=== PATIENT | male | born 1990 | race Caucasian/White ===

== ENCOUNTER 2016-07-31 20:11 | Emergency (ER) | payer SELFPAY ==
--- NOTE | 2016-07-31 22:35 | ER Document Report ---
ED Medical Screen (RME) - General Chief Complaint: Eye Injury Stated Complaint: LEFT EYE PAIN Time Seen by Provider: 07/31/16 22:33 Notes: 26-year-old male, weed eating prior to arrival, something flew into his eye. States he has foreign body sensation with tears. Denies visual loss. Denies bleeding. Denies use of contacts or glasses. TRAVEL OUTSIDE OF THE [place] IN LAST 30 DAYS: No - Related Data Allergies/Adverse Reactions: No Known Allergies Allergy (Unverified 07/31/16 22:02) Past Medical History Renal/ Medical History: Denies: Hx Peritoneal Dialysis Physical Exam - HEENT Eyes: Tears - left Conjunctiva: Injected. No: Purulent discharge Extraocular movements intact: Yes Eyelashes: Normal Pupils: PERRL
--- NOTE | 2016-08-01 00:04 | ER Document Report ---
ED General - General Chief Complaint: Eye Injury Stated Complaint: LEFT EYE PAIN Time Seen by Provider: 07/31/16 22:33 TRAVEL OUTSIDE OF THE [place] IN LAST 30 DAYS: No - HPI Notes: Patient is a 26-year-old male presents to the ED complaining of foreign body sensation to the left eye that began this morning. Patient states that he was weed eating when he felt something go into his eye. He tried rinsing it out in the hose and in the sink with no relief. Patient states that his eyes been red , painful, and tearing constantly. Denies any changes in his vision aside from having trouble wanting to keep his eye lids open. Denies any fever, URI, sore throat, sob, cp, abd pain, or recent illness. No contacts or glasses. No significant PMH. No PO meds daily. No allergies to meds. - Related Data Allergies/Adverse Reactions: No Known Allergies Allergy (Unverified 07/31/16 22:02) Past Medical History - Social History Smoking Status: Current Every Day Smoker Family History: Reviewed & Not Pertinent Patient has suicidal ideation: No Patient has homicidal ideation: No Renal/ Medical History: Denies: Hx Peritoneal Dialysis Review of Systems - Review of Systems Constitutional: denies: No symptoms reported, See HPI, Chills, Diaphoresis, Fever, Malaise, Weakness, Other, Weight gain, Weight loss, Recent illness EENT: See HPI. denies: No symptoms reported, Double vision, Ear discharge, Nose pain, Nose congestion, Nose discharge, Sinus pressure, Sinus discharge, Throat pain, Difficulty swallowing, Throat swelling, Mouth pain, Mouth swelling , Dental problem, Vertigo, Other Cardiovascular: denies: Chest pain, Palpitations, Dizziness Respiratory: denies: Cough, Short of breath Gastrointestinal: denies: Abdominal pain Neurological/Psychological: denies: Headaches Physical Exam - Vital signs Notes: PHYSICAL EXAMINATION: GENERAL: Well-appearing, well-nourished and in no acute distress. HEAD: Atraumatic, normocephalic. EYES: Pupils equal round and reactive to light, extraocular movements intact, sclera anicteric, + left injection to conjunctiva, + tearing, + difficulty keeping eye open. Visual alexander intact. ENT: EAC clear b/l. TM's intact b/l without erythema, fluid, or perforation. Nares patent and without discharge. oropharynx clear without exudates. No tonsilar hypertrophy or erythema. Moist mucous membranes. No sinus tenderness. NECK: Normal range of motion, supple without lymphadenopathy. No rigidity/ meningismus. LUNGS: Breath sounds clear to auscultation bilaterally and equal. No wheezes rales or rhonchi. HEART: Regular rate and rhythm without murmurs, rubs, gallops. NEUROLOGICAL: Cranial nerves grossly intact. Normal speech, normal gait. Normal sensory, motor exams - HEENT Visual acuity- Right eye: 20/20 Visual acuity- Left eye: 20/40 Corrective lenses worn: No Course - Re-evaluation Re-evalutation: 08/01/16 00:07 Patient is an afebrile, well-hydrated, 26yo male who presents with 2 corneal abrasions s/p injury today visualized with wood's lamp and slit lamp exam. Vitals stable. Tetracaine did help resolve pain immediately which helps dx a superficial etiology. I will send him home with ketoralac drops and polytrim. Recheck with ophthalmology in 3-5 days for a recheck. Return to the ED with worsening symptoms otherwise as reviewed in d/c. Pt in agreement. Based on exam today, I have low suspicion for any retained foreign body, orbital cellulitis, abscess, acute glaucoma, globe injury, retinal detachment, or meningitis. Procedures - Eye Procedure Left Time completed: 23:50 Eye Irrigated w/ Saline (ccs): 30 Alcaine Drops Administered: Yes - tetracaine Fluorescein applied: Left Slit lamp used: Yes Notes: 08/01/16 00:06 Tetracaine drops eliminated all discomfort. No foreign body appreciated s/p wood's lamp and slit lamp Lid everted and wiped clean + abrasion noted to cornea x2 Eyes picture: 1 - abrasion 2 - smaller abrasion Discharge - Discharge Clinical Impression: Corneal abrasion Qualifiers: Encounter type: initial encounter Laterality: left Qualified Code(s): S05.02XA - Injury of conjunctiva and corneal abrasion without foreign body, left eye, initial encounter Condition: Stable Disposition: HOME, SELF-CARE Instructions: Corneal Abrasion ([facility]) Additional Instructions: Use drops as directed Tylenol/ibuprofen as needed otherwise Wear safety glasses when working outside Recheck with ophthalmology in 3-5 days and with worsening symptoms. Return to the ED with any worsening pain, changes in vision, loss of vision, headaches, fever, purulent discharge, or worsening symptoms otherwise. Prescriptions: Ketorolac Tromethamine 0.45% [Acuvail 0.45% Oph Soln 0.4 ml/Dropperette] 1 drop OS QID PRN #1 bottle PRN Reason: Polymyxin B Sulf/Trimethoprim [Polytrim Eye Drops] 2 drop OS Q6H #1 bottle
[2016-08-01 00:56] VITALS: BP 129/71
== END 2016-08-01 00:54 | disposition home or self-care (01) ==
LOC: ER 20:11
DX: S05.02XA Injury of conjunctiva and corneal abrasion without foreign body, left eye, initial encounter (principal); W20.8XXA Other cause of strike by thrown, projected or falling object, initial encounter; Y93.H9 Activity, other involving exterior property and land maintenance, building and construction; Y99.0 Civilian activity done for income or pay; F17.200 Nicotine dependence, unspecified, uncomplicated
CPT/HCPCS: 99283

== ENCOUNTER 2018-11-16 11:10 | Emergency (ER) | payer SELFPAY ==
[2018-11-16 11:23] VITALS: BP 136/89
[2018-11-16] MEDS ORDERED: KETOROLAC TROMETHAMINE 60 MG/2 ML SDV IM ONE (11:49)
--- NOTE | 2018-11-16 11:51 | ER Document Report ---
ED Oral Problem - General Chief Complaint: Toothache Stated Complaint: TOOTH ACHE/LEFT SIDE FACE Time Seen by Provider: 11/16/18 11:40 Primary Care Provider: LEXUS CRESPO DDS [NO LOCAL MD] - Follow up in 1 week (for denstistry follow up) TRAVEL OUTSIDE OF THE [place] IN LAST 30 DAYS: No - HPI Notes: 28-year-old male to the emergency department with complaints of left upper and lower toothache that began about 1 week ago. He states that initially the pain came and went but last night the pain got significantly worse. He states that he has tried Orajel but with no benefit. He denies any fevers, chills, drooling, difficulty swallowing, difficulty opening his mouth. He does smoke. - Related Data Allergies/Adverse Reactions: No Known Allergies Allergy (Verified 11/16/18 11:44) Past Medical History - General Information source: Patient - Social History Smoking Status: Current Every Day Smoker Frequency of alcohol use: Occasional Drug Abuse: None Family History: Reviewed & Not Pertinent Renal/ Medical History: Denies: Hx Peritoneal Dialysis - Immunizations Hx Diphtheria, Pertussis, Tetanus Vaccination: Yes Review of Systems - Review of Systems Constitutional: denies: Chills, Fever EENT: Ear pain - pain radiating to the left ear, Mouth pain, Dental problem. denies: Throat pain, Difficulty swallowing, Mouth swelling Cardiovascular: denies: Chest pain, Palpitations, Dyspnea, Syncope, Dizziness, Lightheaded Respiratory: denies: Cough, Short of breath, Sputum, Stridor Gastrointestinal: denies: Abdominal pain, Diarrhea, Nausea, Vomiting Genitourinary: denies: Dysuria, Discharge, Flank pain Musculoskeletal: denies: Back pain, Muscle pain, Muscle stiffness Skin: No symptoms reported Hematologic/Lymphatic: No symptoms reported Neurological/Psychological: No symptoms reported -: Yes All other systems reviewed and negative Physical Exam - Vital signs Vitals: Temp Pulse Resp BP Pulse Ox 98.4 F 62 18 136/89 H 98 11/16/18 11:22 11/16/18 11:22 11/16/18 11:22 11/16/18 11:22 11/16/18 11:22 Interpretation: Normal - General General appearance: Appears well, Alert - HEENT Head: Normocephalic, Atraumatic Eyes: Normal Pupils: PERRL Ears: Normal External canal: Normal Tympanic membrane: Normal Sinus: Normal Nasal: Normal Mouth/Lips: Caries - several dental caries throughout. #12 and #17 are particularly decayed and very TTP over the surrounding gums and these teeth. No anca dental abscess with fluctuance is appreciated, although surroudning gums are erythematous with mild edema. no Espinoza's angina. No trismus. No: Angioedema Mucous membranes: Normal Pharynx: No: Erythema, Exudate, Peritonsillar abscess, Retropharyngeal abscess, Tonsillar hypertrophy, Uvular edema, Potential airway comprom. Neck: Normal, Supple. No: Lymphadenopathy, Meningismus - Respiratory Respiratory status: No respiratory distress Chest status: Nontender Breath sounds: Normal Chest palpation: Normal - Cardiovascular Rhythm: Regular Heart sounds: Normal auscultation Murmur: No - Neurological Neuro grossly intact: Yes Cognition: Normal Orientation: AAOx4 [place] Coma Scale Eye Opening: Spontaneous [place] Coma Scale Verbal: Oriented [place] Coma Scale Motor: Obeys Commands Anthony Coma Scale Total: 15 Speech: Normal Cranial nerves: Normal Cerebellar coordination: Normal Motor strength normal: LUE, RUE, LLE, RLE Sensory: Normal - Psychological Associated symptoms: Normal affect, Normal mood - Skin Skin Temperature: Warm Skin Moisture: Dry Skin Color: Normal Course - Re-evaluation Re-evalutation: Impression: Dental caries with likely evolving dental infection -- no anca abscesses on exam. Encouraged smoking cessation. Will give Abx, small amount of pain medicine and dental follow up. Patient agrees with the plan. - Vital Signs Vital signs: Temp Pulse Resp BP Pulse Ox 98.4 F 62 18 136/89 H 98 11/16/18 11:22 11/16/18 11:22 11/16/18 11:22 11/16/18 11:22 11/16/18 11:22 Discharge - Discharge Clinical Impression: Toothache, Dental caries Condition: Stable Disposition: HOME, SELF-CARE Instructions: Toothache ([facility]) Additional Instructions: COMPLETE ALL ANTIBIOTICS. FOLLOW UP WITH DENTIST. STOP SMOKING. RETURN IF WORSENING SYMPTOMS SUCH PROGRESSIVELY WORSENING FACIAL SWELLING, FEVERS, DROOLING, DIFFICULTY SWALLOWING, DIFFICULTY BREATHING. Prescriptions: Ibuprofen [Motrin 800 mg Tablet] 800 mg PO Q8H PRN #30 tab PRN Reason: Hydrocodone/Acetaminophen [Marvell 5-325 mg Tablet] 1 tab PO Q8H #9 tablet Penicillin V Potassium [Penicillin Vk 500 mg Tablet] 500 mg PO QID #40 tablet Chlorhexidine Gluconate [Peridex] 15 ml MM TID #420 ml Forms: Return to Work Referrals: LEXUS CRESPO DDS [NO LOCAL MD] - Follow up in 1 week (for denstistry follow up)
== END 2018-11-16 11:59 | disposition home or self-care (01) ==
LOC: ER 11:10
DX: K08.89 Other specified disorders of teeth and supporting structures (principal); K02.9 Dental caries, unspecified; F17.200 Nicotine dependence, unspecified, uncomplicated
CPT/HCPCS: 99282; 96372; J1885